=== PATIENT | female | born 1990 | race African-American/Black ===

== ENCOUNTER 2023-12-13 17:02 | Inpatient (IN) | payer OTHER ==
[2023-12-13 18:36] LABS: CHLORIDE 108 mmol/L (98-107); SODIUM 133 mmol/L (136-145)
[2023-12-13] MEDS ORDERED: PROCHLORPERAZINE INJECTION 10 MG/2 ML VIAL ONE (18:37)
[2023-12-13 18:39] LABS: ALBUMIN 3.9 g/dl (3.4-5.0); BLOOD UREA NITROGEN 11.9 mg/dL (7-18); CO2 23 mmol/L (21-32); GLUCOSE,RANDOM 96 mg/dL (74-106)
[2023-12-13] MEDS: SODIUM CHLORIDE 0.9% 500 ML INFUS.BAG IV ONE (18:40)
[2023-12-13] MEDS: PROCHLORPERAZINE INJECTION 10 MG/2 ML VIAL IVPB ONE (18:40)
[2023-12-13 18:42] LABS: SGOT/AST 85 U/L (15-37)
[2023-12-13 18:44] LABS: BASO % 0.7 % (0-2.0); BILIRUBIN,TOTAL 0.4 mg/dL (0.2-1); EOS % 2.9 % (0-4.5); HEMATOCRIT 47.2 % (32.4-45.2); HEMOGLOBIN 15.5 GM/dL (10.7-15.3); LYMPH % 37.4 % (8-40); MCH 23.7 pg (25.7-33.7); MCHC 32.9 g/dl (32.0-36.0); MEAN CELL VOLUME 72.1 fl (80-96); MEAN PLT VOLUME 7.7 fl (7.5-11.1); MONO % 6.3 % (3.8-10.2); NEUT % 52.7 % (42.8-82.8); PLATELET COUNT 295 10^3/uL (134-434); RBC 6.55 M/mm3 (3.60-5.2); RDW 16.1 % (11.6-15.6); TOT PROT 8.1 g/dl (6.4-8.2); WHITE BLOOD COUNT 8.2 K/mm3 (4.0-10.0)
[2023-12-13 18:45] LABS: ALK PHOS 63 U/L (45-117)
[2023-12-13 19:01] LABS: ANION GAP 2 mmol/L (4-13); POTASSIUM 9.5 mmol/L (3.5-5.1); SGPT/ALT 51 U/L (13-61)
[2023-12-13 20:27] LABS: ACTIVATED PTT 42.5 SECONDS (25.2-36.5); INR 1.07 (0.83-1.09); PROTHROMBIN TIME (PATIENT) 12.1 SEC (9.7-13.0)
[2023-12-13 21:42] LABS: POTASSIUM 4.6 mmol/L (3.5-5.1)
[2023-12-13 21:43] LABS: CALCIUM 9.5 mg/dL (8.5-10.1)
[2023-12-13 21:44] LABS: BLOOD UREA NITROGEN 10.9 mg/dL (7-18)
[2023-12-13 21:47] LABS: CREATININE 0.9 mg/dL (0.55-1.3)
[2023-12-13] MEDS ORDERED: HYDROmorphone HCL CARPU-JECT 2 MG/1 ML DISP.SYRIN ONE (22:15)
[2023-12-13] MEDS: HYDROmorphone HCl 2 MG/ML VIAL IVPUSH ONE (23:01)
[2023-12-14] MEDS: QUEtiapine FUMARATE 50 MG TABLET PO SCH (02:24)
[2023-12-14] MEDS: LABETALOL HCL 200 MG TABLET (FP) PO SCH (02:24)
[2023-12-14 05:01] VITALS: BMI 43.7
[2023-12-14] MEDS: ACETAMINOPHEN 1000 MG/100 ML BAG IVPB PRN (08:54)
[2023-12-14 10:24] LABS: BASO % 0.7 % (0-2.0); EOS % 2.5 % (0-4.5); HEMATOCRIT 40.3 % (32.4-45.2); HEMOGLOBIN 13.4 GM/dL (10.7-15.3); LYMPH % 40.9 % (8-40); MCH 24.1 pg (25.7-33.7); MCHC 33.2 g/dl (32.0-36.0); MEAN CELL VOLUME 72.7 fl (80-96); MEAN PLT VOLUME 7.8 fl (7.5-11.1); MONO % 8.1 % (3.8-10.2); NEUT % 47.8 % (42.8-82.8); PLATELET COUNT 241 10^3/uL (134-434); RBC 5.55 M/mm3 (3.60-5.2); WHITE BLOOD COUNT 8.8 K/mm3 (4.0-10.0)
[2023-12-14 10:38] LABS: POTASSIUM 3.8 mmol/L (3.5-5.1)
[2023-12-14 10:42] LABS: ALBUMIN 3.3 g/dl (3.4-5.0); BLOOD UREA NITROGEN 11.2 mg/dL (7-18); CALCIUM 8.2 mg/dL (8.5-10.1); MAGNESIUM 1.9 mg/dL (1.8-2.4)
[2023-12-14 10:45] LABS: CREATININE 0.8 mg/dL (0.55-1.3); PHOSPHOROUS 4.4 mg/dL (2.5-4.9)
[2023-12-14 10:47] LABS: BILIRUBIN,TOTAL 0.6 mg/dL (0.2-1); TOT PROT 6.5 g/dl (6.4-8.2)
[2023-12-14] MEDS: SODIUM CHLORIDE 1,000 ML IV SCH (10:52)
[2023-12-14] MEDS: AMITRIPTYLINE HCL 25 MG TABLET PO SCH (12:46)
[2023-12-14] MEDS: ACETAMINOPHEN/CAFFEINE/BUTALBITAL 1 TAB PO ONE (13:13)
[2023-12-14] MEDS: ACETAMINOPHEN/CAFFEINE/BUTALBITAL 1 TAB PO PRN (21:11)
[2023-12-14] MEDS: diphenhydrAMINE HCL 25 MG CAPSULE (FP) PO PRN (21:12)
[2023-12-14] MEDS ORDERED: HYDROmorphone HCl 2 MG/ML VIAL IVPUSH ONE (22:10)
[2023-12-15] MEDS: METOCLOPRAMIDE HCL INJECTION 10 MG/2 ML VIAL IVPUSH PRN (02:05)
[2023-12-15] MEDS: LORazepam 0.5 MG TABLET PO PRN (02:05)
[2023-12-15] MEDS: ACETAMINOPHEN 1000 MG/100 ML BAG IVPB SCH (02:08)
[2023-12-15 08:30] LABS: BASO % 0.8 % (0-2.0); EOS % 3.8 % (0-4.5); HEMATOCRIT 37.4 % (32.4-45.2); HEMOGLOBIN 12.4 GM/dL (10.7-15.3); LYMPH % 56.6 % (8-40); MCH 24.1 pg (25.7-33.7); MCHC 33.3 g/dl (32.0-36.0); MEAN CELL VOLUME 72.4 fl (80-96); MEAN PLT VOLUME 7.7 fl (7.5-11.1); MONO % 7.9 % (3.8-10.2); NEUT % 30.9 % (42.8-82.8); PLATELET COUNT 223 10^3/uL (134-434); RBC 5.16 M/mm3 (3.60-5.2); RDW 15.8 % (11.6-15.6); WHITE BLOOD COUNT 7.1 K/mm3 (4.0-10.0)
[2023-12-15 08:37] LABS: INR 1.11 (0.83-1.09); PROTHROMBIN TIME (PATIENT) 12.5 SEC (9.7-13.0)
[2023-12-15 08:39] LABS: POTASSIUM 3.9 mmol/L (3.5-5.1)
[2023-12-15 08:41] LABS: ALBUMIN 3.1 g/dl (3.4-5.0); CALCIUM 7.9 mg/dL (8.5-10.1)
[2023-12-15 08:42] LABS: BLOOD UREA NITROGEN 10.2 mg/dL (7-18)
[2023-12-15 08:44] LABS: CREATININE 0.7 mg/dL (0.55-1.3)
[2023-12-15 08:46] LABS: BILIRUBIN,TOTAL 0.3 mg/dL (0.2-1)
[2023-12-15] MEDS: MECLIZINE HCL 25 MG TABLET (FP) PO ONE (14:21)
[2023-12-15] MEDS: MECLIZINE HCL 25 MG TABLET (FP) PO PRN (21:12)
[2023-12-15] MEDS: morphine SULFATE 4 MG/ML VIAL IVPUSH PRN (23:39)
[2023-12-16] MEDS: LORazepam 0.5 MG TABLET PO PRN (01:46)
[2023-12-16 09:30] LABS: INR 1.06 (0.83-1.09); PROTHROMBIN TIME (PATIENT) 12.2 SEC (9.7-13.0)
[2023-12-16 09:36] LABS: BASO % 0.8 % (0-2.0); EOS % 3.2 % (0-4.5); HEMATOCRIT 38.5 % (32.4-45.2); HEMOGLOBIN 12.4 GM/dL (10.7-15.3); LYMPH % 59.7 % (8-40); MCH 23.6 pg (25.7-33.7); MCHC 32.3 g/dl (32.0-36.0); MONO % 5.6 % (3.8-10.2); NEUT % 30.7 % (42.8-82.8); PLATELET COUNT 238 10^3/uL (134-434); RBC 5.27 M/mm3 (3.60-5.2)
[2023-12-16 09:50] LABS: POTASSIUM 3.9 mmol/L (3.5-5.1)
[2023-12-16 10:00] LABS: ALBUMIN 3.5 g/dl (3.4-5.0); BLOOD UREA NITROGEN 6.1 mg/dL (7-18); CALCIUM 8.3 mg/dL (8.5-10.1)
[2023-12-16 10:05] LABS: BILIRUBIN,TOTAL 0.4 mg/dL (0.2-1); MAGNESIUM 1.9 mg/dL (1.8-2.4); TOT PROT 6.6 g/dl (6.4-8.2)
[2023-12-16 10:07] LABS: CREATININE 0.7 mg/dL (0.55-1.3)
[2023-12-17] MEDS ORDERED: BUPIVACAINE HCL/PF 0.5% (5MG/ML) 10 ML VIAL ONE (07:03)
[2023-12-17] MEDS ORDERED: THROMBIN (BOVINE) 5,000 UNIT VIAL TP ONE (07:03)
[2023-12-17] MEDS ORDERED: GENTAMICIN SO4 80 MG/2 ML VIAL ONE (07:03)
[2023-12-17] MEDS ORDERED: LIDOCAINE 1%/EPI 1:100000 (20 ML MULTI DOSE VIAL) ONE (07:04)
[2023-12-17] MEDS ORDERED: BUPIVACAINE LIPOSOME/PF (EXPAREL) 266 MG/20 ML VIAL ONE (07:04)
[2023-12-17] MEDS: ceFAZolin SODIUM 1 GM VIAL IVPB ONE ×2 (07:20→09:30)
[2023-12-17] MEDS: VANCOMYCIN 1 GM in D5W (PRE-DOCKED) 1,000 MG/250 ML (RESTRICTED TO ID ONLY IVPB ONE ×2 (07:20→09:30)
[2023-12-17] MEDS: LIDOCAINE 1%/EPI 1:100000 (20 ML MULTI DOSE VIAL) IJ ONE ×2 (07:21→09:55)
[2023-12-17] MEDS: GENTAMICIN SO4 80 MG/2 ML VIAL IVPB ONE ×2 (08:06→10:48)
[2023-12-17] MEDS: THROMBIN (BOVINE) 5,000 UNIT VIAL TP ONE ×2 (08:06→10:30)
[2023-12-17] MEDS: HYDROGEN PEROXIDE 473 ML PO ONE ×2 (08:07→10:48)
[2023-12-17] MEDS ORDERED: MIDAZOLAM HCL 2 MG/2 ML SINGLE DOSE VIAL ONE (08:23)
[2023-12-17] MEDS ORDERED: PROPOFOL 40 ML ONE (08:24)
[2023-12-17] MEDS ORDERED: FUROSEMIDE 40 MG/4 ML INJECTABLE VIAL ONE (08:26)
[2023-12-17] MEDS: AMITRIPTYLINE HCL 50 MG TABLET PO SCH (08:28)
[2023-12-17] MEDS ORDERED: LIDOCAINE HCL/PF 2% SDV 5ML VIAL ONE (08:28)
[2023-12-17] MEDS ORDERED: SODIUM CHLORIDE 0.9% P/F 10 ML VIAL IJ ONE (08:28)
[2023-12-17] MEDS ORDERED: ceFAZolin SODIUM 1 GM VIAL ONE (08:29)
[2023-12-17] MEDS ORDERED: GLYCOPYRROLATE 0.2 MG/1 ML VIAL ONE (08:34)
[2023-12-17] MEDS ORDERED: ROCURONIUM BROMIDE 50 MG/5 ML SYRINGE ONE ×3 (08:38→12:08)
[2023-12-17 08:49] LABS: BASO % 0.6 % (0-2.0); EOS % 3.4 % (0-4.5); HEMATOCRIT 39.3 % (32.4-45.2); INR 1.12 (0.83-1.09); LYMPH % 37.2 % (8-40); MCH 23.9 pg (25.7-33.7); MCHC 33.1 g/dl (32.0-36.0); MEAN CELL VOLUME 72.1 fl (80-96); MEAN PLT VOLUME 7.6 fl (7.5-11.1); MONO % 7.2 % (3.8-10.2); NEUT % 51.6 % (42.8-82.8); PLATELET COUNT 237 10^3/uL (134-434); PROTHROMBIN TIME (PATIENT) 12.6 SEC (9.7-13.0); RBC 5.45 M/mm3 (3.60-5.2); RDW 15.9 % (11.6-15.6); WHITE BLOOD COUNT 6.9 K/mm3 (4.0-10.0)
[2023-12-17 09:03] LABS: POTASSIUM 3.8 mmol/L (3.5-5.1)
[2023-12-17 09:05] LABS: CALCIUM 8.6 mg/dL (8.5-10.1)
[2023-12-17 09:06] LABS: ALBUMIN 3.5 g/dl (3.4-5.0); MAGNESIUM 1.8 mg/dL (1.8-2.4)
[2023-12-17 09:09] LABS: BLOOD UREA NITROGEN 6.9 mg/dL (7-18); CREATININE 0.8 mg/dL (0.55-1.3)
[2023-12-17 09:11] LABS: TOT PROT 6.8 g/dl (6.4-8.2)
[2023-12-17 09:14] LABS: BILIRUBIN,TOTAL 0.6 mg/dL (0.2-1)
[2023-12-17] MEDS ORDERED: VANCOMYCIN 1,000 MG VIAL (RESTRICTED TO ID ONLY) ONE (09:26)
[2023-12-17] MEDS ORDERED: KETAMINE HCL 200 MG/20 ML VIAL ONE (09:30)
[2023-12-17] MEDS ORDERED: HYDROmorphone HCl 2 MG/ML VIAL ONE (09:53)
[2023-12-17] MEDS ORDERED: TRANEXAMIC ACID 1000 MG/10 ML VIAL ONE (10:00)
[2023-12-17] MEDS ORDERED: MAGNESIUM SULF 50% (8.12 MEQ/2 ML-1 GM VIAL) ONE (10:08)
[2023-12-17] MEDS ORDERED: ONDANSETRON 4 MG/2 ML VIAL IVPUSH PRN ×2 (10:13→13:10)
[2023-12-17] MEDS ORDERED: LACTATED RINGERS SOLUTION 1,000 ML IV SCH (10:15)
[2023-12-17] MEDS ORDERED: SUGAMMADEX SODIUM 200 MG/2 ML VIAL ONE (11:21)
[2023-12-17] MEDS: BUPIVACAINE HCL/PF 0.5% (5MG/ML) 10 ML VIAL IJ ONE (11:50)
[2023-12-17] MEDS: BUPIVACAINE LIPOSOME/PF (EXPAREL) 266 MG/20 ML VIAL NR ONE (11:50)
[2023-12-17] MEDS ORDERED: ACETAMINOPHEN INJECTION 100 ML IVPB ONE (12:17)
[2023-12-17] MEDS ORDERED: MECLIZINE HCL 25 MG TABLET (FP) PO PRN (13:10)
[2023-12-17] MEDS ORDERED: ACETAMINOPHEN/CAFFEINE/BUTALBITAL 1 TAB PO PRN (13:10)
[2023-12-17] MEDS: LACTATED RINGERS SOLUTION 1,000 ML IV SCH (14:20)
[2023-12-17] MEDS: morphine SULFATE 4 MG/ML VIAL IVPUSH PRN (17:02)
[2023-12-17] MEDS: LABETALOL HCL 100 MG TABLET (FP) PO ONE (17:14)
[2023-12-17] MEDS: AMITRIPTYLINE HCL 50 MG TABLET PO ONE (17:21)
[2023-12-17] MEDS: AMITRIPTYLINE HCL 25 MG TABLET PO ONE (17:24)
[2023-12-17] MEDS: LORazepam 0.5 MG TABLET PO PRN (21:04)
[2023-12-17] MEDS ORDERED: HYDROmorphone HCL CARPU-JECT 2 MG/1 ML DISP.SYRIN ONE (21:34)
[2023-12-17] MEDS: HYDROmorphone HCL CARPU-JECT 2 MG/1 ML DISP.SYRIN IVPUSH ONE (21:40)
[2023-12-17] MEDS: METOCLOPRAMIDE HCL INJECTION 10 MG/2 ML VIAL IVPUSH PRN (21:55)
[2023-12-17] MEDS: QUEtiapine FUMARATE 50 MG TABLET PO SCH (22:55)
[2023-12-17] MEDS: LABETALOL HCL 200 MG TABLET (FP) PO SCH (22:55)
[2023-12-18] MEDS ORDERED: QUEtiapine FUMARATE 25 MG TABLET ONE ×2 (01:41→21:20)
[2023-12-18] MEDS: QUEtiapine FUMARATE 50 MG TABLET PO ONE (01:46)
[2023-12-18] MEDS: LABETALOL HCL 200 MG TABLET (FP) PO ONE (02:21)
[2023-12-18] MEDS: diphenhydrAMINE HCL 25 MG CAPSULE (FP) PO PRN (03:47)
[2023-12-18 07:11] LABS: POTASSIUM 3.8 mmol/L (3.5-5.1)
[2023-12-18 07:14] LABS: BLOOD UREA NITROGEN 8.8 mg/dL (7-18); CALCIUM 8.7 mg/dL (8.5-10.1)
[2023-12-18 07:15] LABS: ALBUMIN 3.5 g/dl (3.4-5.0)
[2023-12-18 07:17] LABS: CREATININE 0.9 mg/dL (0.55-1.3)
[2023-12-18 07:19] LABS: BILIRUBIN,TOTAL 0.5 mg/dL (0.2-1); TOT PROT 6.6 g/dl (6.4-8.2)
[2023-12-18 07:50] LABS: HEMATOCRIT 38.2 % (32.4-45.2); HEMOGLOBIN 12.7 GM/dL (10.7-15.3); MCH 23.8 pg (25.7-33.7); MCHC 33.1 g/dl (32.0-36.0); MEAN CELL VOLUME 71.9 fl (80-96); MEAN PLT VOLUME 8.2 fl (7.5-11.1); PLATELET COUNT 189 10^3/uL (134-434); RBC 5.32 M/mm3 (3.60-5.2); RDW 15.6 % (11.6-15.6)
[2023-12-18 07:53] LABS: WHITE BLOOD COUNT 13.7 K/mm3 (4.0-10.0)
[2023-12-18 08:46] LABS: PLATELET ESTIMATE ADEQUATE
[2023-12-18] MEDS: ACETAMINOPHEN 1000 MG/100 ML BAG IVPB SCH ×2 (09:53→21:47)
[2023-12-18] MEDS ORDERED: diphenhydrAMINE HCL 25 MG CAPSULE (FP) PO PRN (10:36)
[2023-12-18] MEDS ORDERED: MECLIZINE HCL 25 MG TABLET (FP) PO PRN ×2 (10:36→18:46)
[2023-12-18] MEDS: AMITRIPTYLINE HCL 25 MG TABLET PO SCH ×2 (11:24→11:33)
[2023-12-18] MEDS: morphine SULFATE 4 MG/ML VIAL IVPUSH PRN ×2 (11:24→19:41)
[2023-12-18] MEDS: LACTATED RINGERS SOLUTION 1,000 ML IV SCH (12:08)
[2023-12-18] MEDS: LORazepam 0.5 MG TABLET PO PRN (13:49)
[2023-12-18] MEDS: LACTATED RINGERS SOLUTION 1,000 ML/1,000 ML INFUS.BAG IV SCH (16:21)
[2023-12-18] MEDS: METOCLOPRAMIDE HCL INJECTION 10 MG/2 ML VIAL IVPUSH PRN (17:27)
[2023-12-18] MEDS: LORazepam 1 MG TABLET PO PRN (21:46)
[2023-12-18] MEDS: QUEtiapine FUMARATE 50 MG TABLET PO SCH (21:47)
[2023-12-18] MEDS: LABETALOL HCL 200 MG TABLET (FP) PO SCH (21:47)
[2023-12-18] MEDS ORDERED: LABETALOL HCL 200 MG TABLET (FP) PO SCH (22:00)
[2023-12-18] MEDS ORDERED: QUEtiapine FUMARATE 50 MG TABLET PO SCH (22:00)
[2023-12-19 08:08] LABS: BASO % 0.6 % (0-2.0); EOS % 0.1 % (0-4.5); HEMATOCRIT 37.5 % (32.4-45.2); HEMOGLOBIN 12.2 GM/dL (10.7-15.3); LYMPH % 20.1 % (8-40); MCH 23.8 pg (25.7-33.7); MCHC 32.4 g/dl (32.0-36.0); MEAN CELL VOLUME 73.4 fl (80-96); MEAN PLT VOLUME 7.8 fl (7.5-11.1); MONO % 7.7 % (3.8-10.2); NEUT % 71.5 % (42.8-82.8); PLATELET COUNT 208 10^3/uL (134-434); RBC 5.12 M/mm3 (3.60-5.2); RDW 15.6 % (11.6-15.6); WHITE BLOOD COUNT 13.2 K/mm3 (4.0-10.0)
[2023-12-19 08:21] LABS: POTASSIUM 3.9 mmol/L (3.5-5.1)
[2023-12-19 08:26] LABS: CALCIUM 8.7 mg/dL (8.5-10.1); MAGNESIUM 2.2 mg/dL (1.8-2.4)
[2023-12-19 08:27] LABS: ALBUMIN 3.1 g/dl (3.4-5.0)
[2023-12-19 08:30] LABS: BILIRUBIN,TOTAL 0.8 mg/dL (0.2-1); CREATININE 0.8 mg/dL (0.55-1.3); TOT PROT 6.4 g/dl (6.4-8.2)
[2023-12-19] MEDS ORDERED: ACETAMINOPHEN 325 MG TABLET (FP) PO SCH (09:30)
[2023-12-19] MEDS: ACETAMINOPHEN 500 MG TABLET (FP) PO SCH (11:05)
[2023-12-19] MEDS: AMITRIPTYLINE HCL 25 MG TABLET PO SCH (11:06)
[2023-12-19] MEDS: DOCUSATE SODIUM 100 MG CAPSULE (FP) PO ONE (16:02)
[2023-12-19] MEDS: oxyCODONE HCL 5 MG TABLET PO PRN (19:48)
[2023-12-19] MEDS ORDERED: QUEtiapine FUMARATE 25 MG TABLET ONE (20:50)
[2023-12-19] MEDS: POLYETHYLENE GLYCOL (HEALTHYLAX) 3350 17 GM PACKET PO SCH (21:01)
[2023-12-19] MEDS: diphenhydrAMINE HCL 25 MG CAPSULE (FP) PO PRN (21:01)
[2023-12-19] MEDS: METOCLOPRAMIDE HCL INJECTION 10 MG/2 ML VIAL IVPUSH PRN (23:17)
[2023-12-20 07:59] VITALS: RESP 19
[2023-12-20 09:08] VITALS: BP 115/76; PULSE 90; TEMP 98.7
[2023-12-20 09:33] LABS: BASO % 0.6 % (0-2.0); EOS % 0.7 % (0-4.5); HEMOGLOBIN 12.5 GM/dL (10.7-15.3); LYMPH % 13.6 % (8-40); MCH 24.1 pg (25.7-33.7); MCHC 33.7 g/dl (32.0-36.0); MEAN CELL VOLUME 71.6 fl (80-96); MEAN PLT VOLUME 7.9 fl (7.5-11.1); MONO % 5.5 % (3.8-10.2); NEUT % 79.6 % (42.8-82.8); PLATELET COUNT 227 10^3/uL (134-434); RBC 5.17 M/mm3 (3.60-5.2); RDW 15.6 % (11.6-15.6); WHITE BLOOD COUNT 12.4 K/mm3 (4.0-10.0)
[2023-12-20 09:55] LABS: POTASSIUM 4.2 mmol/L (3.5-5.1)
[2023-12-20 10:10] LABS: CALCIUM 8.8 mg/dL (8.5-10.1)
[2023-12-20 10:11] LABS: ALBUMIN 3.1 g/dl (3.4-5.0); BLOOD UREA NITROGEN 9.3 mg/dL (7-18)
[2023-12-20 10:14] LABS: CREATININE 0.8 mg/dL (0.55-1.3)
[2023-12-20 10:16] LABS: BILIRUBIN,TOTAL 0.7 mg/dL (0.2-1); TOT PROT 6.8 g/dl (6.4-8.2)
[2023-12-20] MEDS: LACTULOSE 20 GM/30 ML UDC (FOR ORAL USE ONLY) PO ONE (12:07)
== END 2023-12-20 11:58 | disposition home or self-care (01) | DRG 23 ==
LOC: JER 17:02 → JERBED 20:17 → J8W 12-14 01:25 → J4S 12-18 00:25 → J5S 12-18 17:58
PROVIDERS: ADMIT Internal Medicine; ATTEND Nurse Practitioner Acute Care
PROC: 0SG0071 Fusion of Lumbar Vertebral Joint with Autologous Tissue Substitute, Posterior Approach, Posterior Column, Open Approach (ICD-10-PCS; 2023-12-17)
PROC: 0RGA071 Fusion of Thoracolumbar Vertebral Joint with Autologous Tissue Substitute, Posterior Approach, Posterior Column, Open Approach (ICD-10-PCS; 2023-12-17)
PROC: 4A11X4G Monitoring of Peripheral Nervous Electrical Activity, Intraoperative, External Approach (ICD-10-PCS; 2023-12-17)
PROC: 00UT0JZ Supplement Spinal Meninges with Synthetic Substitute, Open Approach (ICD-10-PCS; principal; 2023-12-17 08:30)
DX: G96.09 Other spinal cerebrospinal fluid leak (principal); Q24.0 Dextrocardia; E66.01 Morbid (severe) obesity due to excess calories; Z68.41 Body mass index [BMI] 40.0-44.9, adult; G90.522 Complex regional pain syndrome I of left lower limb; I10 Essential (primary) hypertension; G97.1 Other reaction to spinal and lumbar puncture; M51.36 Other intervertebral disc degeneration, lumbar region; M48.061 Spinal stenosis, lumbar region without neurogenic claudication; R07.89 Other chest pain; N80.8 Other endometriosis; Y83.8 Other surgical procedures as the cause of abnormal reaction of the patient, or of later complication, without mention of misadventure at the time of the procedure; Y82.9 Unspecified medical devices associated with adverse incidents; Z85.43 Personal history of malignant neoplasm of ovary
CPT/HCPCS: 0241U-QW; 36415; 70450-TC; 71045-TC-FY; 72125-TC; 72131-TC; 72148-TC; 76000-TC-FY; 80048; 80053; 83735; 84100; 84484; 84703; 85025; 85610; 85651; 85730; 86140; 86850; 86900; 86901; 93005; 93010; 93306-TC; 94010; 94760; 97116-GP; 97161-GP; 99285-25; J0131

== ENCOUNTER 2024-01-08 08:11 | Emergency (ER) | payer OTHER ==
[2024-01-08 08:18] VITALS: BMI 25.8
[2024-01-08] MEDS ORDERED: morphine SULFATE 4 MG/ML VIAL ONE (09:18)
[2024-01-08 10:40] LABS: EOS % 3.8 % (0-4.5); HEMATOCRIT 39.3 % (32.4-45.2); HEMOGLOBIN 13.2 GM/dL (10.7-15.3); MCH 24.3 pg (25.7-33.7); MCHC 33.5 g/dl (32.0-36.0); MEAN CELL VOLUME 72.5 fl (80-96); MEAN PLT VOLUME 8.3 fl (7.5-11.1); MONO % 5.2 % (3.8-10.2); PLATELET COUNT 164 10^3/uL (134-434); RBC 5.41 M/mm3 (3.60-5.2); RDW 16.2 % (11.6-15.6)
[2024-01-08 10:47] LABS: INR 1.05 (0.83-1.09); PROTHROMBIN TIME (PATIENT) 11.8 SEC (9.7-13.0)
[2024-01-08] MEDS: SODIUM CHLORIDE 500 ML IV STA (11:11)
[2024-01-08] MEDS: morphine CARPU-JECT 4 MG/1 ML DISP.SYRIN IVPUSH ONE (11:11)
[2024-01-08 11:18] LABS: POTASSIUM 4.9 mmol/L (3.5-5.1)
[2024-01-08 11:21] LABS: ALBUMIN 3.4 g/dl (3.4-5.0); BLOOD UREA NITROGEN 7.7 mg/dL (7-18); CALCIUM 8.7 mg/dL (8.5-10.1)
[2024-01-08 11:24] LABS: CREATININE 0.7 mg/dL (0.55-1.3)
[2024-01-08 11:26] LABS: BILIRUBIN,TOTAL 0.4 mg/dL (0.2-1)
[2024-01-08] MEDS ORDERED: HYDROmorphone HCL CARPU-JECT 2 MG/1 ML DISP.SYRIN ONE (13:02)
[2024-01-08] MEDS: HYDROmorphone HCl 2 MG/ML VIAL IVPUSH ONE (13:15)
[2024-01-08] MEDS ORDERED: METOCLOPRAMIDE HCL INJECTION 10 MG/2 ML VIAL ONE (14:43)
[2024-01-08] MEDS: METOCLOPRAMIDE HCL INJECTION 10 MG/2 ML VIAL IVPUSH ONE (15:07)
[2024-01-08 15:14] VITALS: BP 141/71; PULSE 65; RESP 20; TEMP 97.9
== END 2024-01-08 15:40 | disposition home or self-care (01) ==
LOC: JER 08:11
PROC: 3E033GC Introduction of Other Therapeutic Substance into Peripheral Vein, Percutaneous Approach (ICD-10-PCS; principal; 2024-01-08)
PROC: 3E033GC Introduction of Other Therapeutic Substance into Peripheral Vein, Percutaneous Approach (ICD-10-PCS; 2024-01-08)
PROC: 3E033NZ Introduction of Analgesics, Hypnotics, Sedatives into Peripheral Vein, Percutaneous Approach (ICD-10-PCS; 2024-01-08)
PROC: 3E033NZ Introduction of Analgesics, Hypnotics, Sedatives into Peripheral Vein, Percutaneous Approach (ICD-10-PCS; 2024-01-08)
PROC: 3E0337Z Introduction of Electrolytic and Water Balance Substance into Peripheral Vein, Percutaneous Approach (ICD-10-PCS; 2024-01-08)
DX: R51.9 Headache, unspecified (principal); G90.50 Complex regional pain syndrome I, unspecified; G96.00 Cerebrospinal fluid leak, unspecified
CPT/HCPCS: 36415; 70450-TC; 80053; 85025; 85610; 86850; 86900; 86901; 99284-25